=== PATIENT | male | born 1985 | race Caucasian/White ===

== ENCOUNTER 2019-07-06 09:30 | Emergency (ER) | payer OTHER ==
[~2019-07-06] VITALS: Ht 167.6 cm; Wt 131.8 kg
[2019-07-06 09:35] VITALS: Ht 167.6 cm; Wt 131.8 kg
[2019-07-06 14:00] VITALS: BP 148/88
[2019-07-06] MEDS ORDERED: MAXITROL EYE O3.5 GM EACH EYE (14:05)
[2019-07-06] MEDS ORDERED: TYLENOL #4 W/CO1 TAB PO (14:07)
== END 2019-07-06 14:15 | disposition home or self-care (01) ==
LOC: D.ER 09:30
DX: H10.213 Acute toxic conjunctivitis, bilateral (principal)

== ENCOUNTER 2020-07-05 06:55 | Day surgery (SDC) | payer BC, MEDICAID ==
[~2020-07-05] VITALS: Ht 167.6 cm; Wt 149.7 kg
--- NOTE | ~2020-07-05 | OP ---
PATIENT NAME: DONG LOPEZ MEDICAL RECORD: [id number] :85 LOCATION:[facility] ADMISSION DATE: SURGEON: MIGDALIA ALLISON MD DATE OF OPERATION: 07/05/2020 PREOPERATIVE DIAGNOSES: Nasal obstruction, septal deviation, turbinate hypertrophy refractory to medical management, and sleep apnea. POSTOPERATIVE DIAGNOSES: Nasal obstruction, septal deviation, turbinate hypertrophy refractory to medical management, and sleep apnea. PROCEDURE: Septoplasty and bilateral inferior turbinate reduction. SURGEON: Migdalia Allison MD ANESTHESIA: General orotracheal. BLOOD LOSS: Less than 5 cc. SPECIMENS: None. NASAL PACKING: Gallegos splints bilaterally. COMPLICATIONS: None. DISPOSITION: Recovery, stable. DESCRIPTION OF PROCEDURE: He was brought to the operating room and placed in supine position, sedated and intubated by anesthesia. The nose was examined using a headlight and nasal speculum. The septum, floor of the nose, inferior turbinates were injected with a total of 1.5 cc of 1% lidocaine with 1:100,000 epinephrine with 1-1/2 inch 27-gauge needle. He was positioned, prepped and draped in the usual fashion. Two Afrin pledgets were placed in each side of the nose. After waiting for decongestion, all the Afrin pledgets were removed. A left-sided Logan incision was made. Ipsilateral mucoperichondrial flap was elevated. Really the entire left nostril was not visible because of the severity of the septal deviation, basically I punched in laterally into the inferior turbinate there. I the cartilage there at that right angle to allow to move the septum over into the right and make ipsilateral and contralateral posterior mucoperichondrial flap and removed a large bony spur there and then a portion of the inferior septal cartilage rolled out into the floor of the nose was resected to make the same length, so there was not so much bowing. It just barely touch the maxillary spine. Some relaxing incision was made in the cartilage and this allowed the septum to fall back in the midline. Then, both the inferior turbinates were medialized with a freer. A Gruenwald was used to take down the inferior portion of the turbinates and suction cautery was used to stop any bleeding. They were both outfractured with the [place] elevator. I then returned to the septum to make sure everything was straight and the Logan incision was closed with interrupted 4-0 chromic and Gallegos splints were placed bilaterally with mupirocin ointment and sutured to the anterior membranous septum with a 2-0 Prolene on a Marino needle. He was awakened, extubated, and transported to recovery in good condition. No complications. TRANSINT:[id number] Voice Confirmation ID: [id number] DOCUMENT ID: [id number] OPERATIVE REPORT [id number] DONG LOPEZ ERIC MD CC: [id number] DICTATION DATE: 07/05/201216 FLYING SQUAD WORKER: 07/05/201948 [facility] 07/05/20 [facility] [address] [id number]
[~2020-07-05 06:55] MED LIST: ALLEGRA D PO; GABAPENTIN100 MG PO; MAXITROL EYE O3.5 GM EACH EYE; NASACORT10.8 ML NASAL; TYLENOL #4 W/CO1 TAB PO
[2020-07-05] MEDS ORDERED: MOBIC7.5 MG (08:23)
[2020-07-05 08:24] VITALS: BP 142/71; Ht 167.6 cm; Wt 149.7 kg
--- NOTE | 2020-07-05 12:04 | HP ---
PATIENT: DONG NICHOLAS MEDICAL RECORD: [id number] ACCOUNT: [id number] LOCATION:[facility] : 85 ADMISSION DATE: 07/05/20 PCP: JAMIE HASTINGS MD HISTORY AND PHYSICAL EXAMINATION PREOPERATIVE HISTORY AND PHYSICAL HISTORY OF PRESENT ILLNESS: Mr. Nicholas is a 35-year-old male with nasal obstruction refractory to medical management, severe septal deviation and turbinate hypertrophy, been admitted for septoplasty and bilateral inferior turbinate reduction. PAST MEDICAL HISTORY: Otherwise, negative. PAST SURGICAL HISTORY: None. ALLERGIES: IODINE. MEDICATIONS: Gabapentin. PHYSICAL EXAMINATION: GENERAL: Healthy appearing. FACE: Normal and symmetric. No lesions. EYES: Sclerae and conjunctivae are normal. EARS: Canals and TMs are normal. NOSE: Severe septal deviation, enlarged turbinates, that do not decongest. ORAL CAVITY AND OROPHARYNX: Tongue is midline. Pharynx is normal. Bifid uvula. Normal palate. NECK: No masses, no adenopathy. CHEST: Clear. CARDIOVASCULAR: Regular rate and rhythm, no murmur. EXTREMITIES: Normal. IMPRESSION: Nasal obstruction, septal deviation, and turbinate hypertrophy. PLAN: Septoplasty and bilateral inferior turbinate reduction. TRANSINT:[id number] Voice Confirmation ID: [id number] DOCUMENT ID: [id number] MIGDALIA PATRICK MD at 1204 CC: [id number] DICTATION DATE: 07/04/20822 HELPER COORDINATOR: 07/04/20 0853 [facility] [address] [id number]
--- NOTE | 2020-07-05 12:19 | NUR ---
PT ENTERED PACU THRASHING AND COMBATIVE. INTERVENTION BY ANESTHESIA.
== END 2020-07-05 14:15 | disposition home or self-care (01) ==
LOC: D.OPS 06:55
PROVIDERS: ATTEND Otolaryngology
DX: J34.89 Other specified disorders of nose and nasal sinuses (principal); J34.2 Deviated nasal septum; J34.3 Hypertrophy of nasal turbinates; G47.30 Sleep apnea, unspecified